=== PATIENT | male | born 1995 | race Caucasian/White ===

== ENCOUNTER 2020-02-23 18:07 | Emergency (ER) | payer BC ==
[~2020-02-23] VITALS: Ht 203.2 cm; Wt 154.5 kg
[2020-02-23 18:25] VITALS: BP 121/72; TEMP 97.8
[2020-02-23] MEDS ORDERED: NORCO 325 MG-51 TAB PO (20:00)
[2020-02-23 20:41] VITALS: PULSE 105
== END 2020-02-23 20:28 | disposition home or self-care (01) ==
LOC: COL.ER 18:07
DX: S82.402A Unspecified fracture of shaft of left fibula, initial encounter for closed fracture (principal); W19.XXXA Unspecified fall, initial encounter
CPT/HCPCS: J2270; J2405

== ENCOUNTER → 2020-03-04 | Outpatient (CLI) | payer BC ==
[~2020-03-04] MED LIST: NORCO 325 MG-51 TAB PO
== END ==
LOC: COL.RAD 12:21
DX: S83.512A Sprain of anterior cruciate ligament of left knee, initial encounter (principal); S83.522A Sprain of posterior cruciate ligament of left knee, initial encounter; I72.9 Aneurysm of unspecified site
CPT/HCPCS: Q9967